=== PATIENT | male | born 1985 | race Hispanic/Latino ===

== ENCOUNTER 2018-06-14 16:05 | Observation (INO) | payer OTHER, BC ==
[2018-06-14] MEDS ORDERED: ceFAZolin 1 GM in Sodium Chloride 0.9% 100 ML IVPB ONE (16:51)
[2018-06-14] MEDS ORDERED: Lidocaine PF 2% (5 ml) Inj (For Cardiac Arrhy) IJ STA (16:52)
[2018-06-14] MEDS ORDERED: Lidocaine PF 2% (5 ml) Inj (For Cardiac Arrhy) ONE (17:07)
[2018-06-14] MEDS ORDERED: ceFAZolin IV 1 gm in Dextrose 1 GM/50 ML BAG IVPB ONE ×2 (17:26→22:09)
--- NOTE | 2018-06-14 17:41 | RAD ---
PROCEDURE: Left Hand Radiographs. HISTORY: laceration, thumb COMPARISON: None. FINDINGS: BONES: Normal. No fracture. JOINTS: Normal. No osteoarthritic changes. SOFT TISSUES: Normal. No visulaized radiopaque/visualized foreign body. OTHER FINDINGS: None. IMPRESSION: Normal left hand radiographs.
[2018-06-14] MEDS ORDERED: HYDROmorphone 0.5 mg/0.5 ml ISec IVP PRN ×2 (18:46→22:51)
--- NOTE | 2018-06-14 18:52 | CP.PCM.HP ---
History of Present Illness - History of Present Illness History of Present Illness: Plastic surgery H & P for Dr. Marycruz Driscoll, PGY-2 Pt S & E at bedside at 1810 32M w/PMH sig for Degenerative disc disease admitted s/p Left thumb laceration. Pt reports being at work today, when a metal beam fell and cut his thumb at the base. Pt reports pain, inability to extend the distal aspect of the thumb. Pain is constant, moderate-severe, radiates laterally. Pain alleviated by pain medication. Aggravated by movement. Denies changes in sensation, numbness or tingling. PMH: Degenerative disc disease PSH: Back sx All: Some allergy med SH: Denies ETOH use, quit tobacco 6 mos ago- now uses vaporizor, denies illicit drug use- on Oxycodone 30mg Q6H for back pain Last meal: 2 slices of pizza at noon Last tetanus- 5 yrs ago Present on Admission - Present on Admission Any Indicators Present on Admission: No History of DVT/PE: No History of Uncontrolled Diabetes: No Urinary Catheter: No Decubitus Ulcer Present: No Review of Systems - Review of Systems All systems: reviewed and no additional remarkable complaints except - Constitutional Constitutional: absent: Chills, Fever Past Patient History - Past Social History Smoking Status: Never Smoked - PSYCHIATRIC Hx Substance Use: No Meds Allergies/Adverse Reactions: Allergies Allergy/AdvReac Type Severity Reaction Status Date / Time Iodinated Contrast- Oral and Allergy SHORTNESS Verified 06/14/18 16:14 IV Dye OF BREATH "allergy medication" Allergy SHORTNESS Uncoded 06/14/18 16:14 OF BREATH Physical Exam - Constitutional Appears: Non-toxic, No Acute Distress - Head Exam Head Exam: ATRAUMATIC, NORMAL INSPECTION, NORMOCEPHALIC - Eye Exam Eye Exam: EOMI, Normal appearance - ENT Exam ENT Exam: Mucous Membranes Moist, Normal Exam - Neck Exam Neck exam: Positive for: Full Rom, Normal Inspection - Respiratory Exam Respiratory Exam: Clear to Auscultation Bilateral, NORMAL BREATHING PATTERN - Cardiovascular Exam Cardiovascular Exam: REGULAR RHYTHM, +S1, +S2 - GI/Abdominal Exam GI & Abdominal Exam: Normal Bowel Sounds, Soft. absent: Tenderness - Extremities Exam Extremities exam: Negative for: normal inspection (Left dorsal aspect of hand with lateral laceration at proximal aspect, visible distal tendon, full thickness laceration) - Neurological Exam Neurological exam: Alert, CN II-XII Intact, Oriented x3 - Psychiatric Exam Psychiatric exam: Normal Affect, Normal Mood - Skin Skin Exam: Dry, Normal Color Results - Vital Signs Recent Vital Signs: Last Vital Signs Temp 98.5 F 06/14/18 16:14 Pulse 87 06/14/18 16:14 Resp 16 06/14/18 16:14 BP 172/64 H 06/14/18 16:14 Pulse Ox 96 06/14/18 16:14 - Labs Result Diagrams: 06/14/18 18:50 06/14/18 18:50 Assessment & Plan - Assessment and Plan (Free Text) Assessment: 32M w/Left hand laceration over dorsal aspect of thumb- full thickness extensor tendon laceration Plan: Unable to repair in ED Plan for OR tonight Admit to med-surg NPO Pain control Anti-emetic Activity as tolerated DW Dr. Henry Driscoll, PGY-2 - Date & Time Date: 06/14/18 Time: 18:54 Decision To Admit - Pt Status Changed To: Hospital Disposition Of: Observation - . Bed Request Type: Med/Surg Admitting Physician: Yvonne Figueroa
[2018-06-14 19:04] LABS: BASO % 0.6 % (0.0-2.0); EOS % 0.5 % (0.0-4.0); HEMOGLOBIN 13.3 g/dL (12.0-18.0); LYMPH % 34.3 % (20.0-40.0); MEAN CELL VOLUME 89.8 fl (80.0-94.0); MEAN CORPUSCULAR HEMOGLOBIN 30.9 pg (27.0-31.0); MEAN CORPUSCULAR HGB CONC 34.4 g/dL (33.0-37.0); MEAN PLATELET VOLUME 7.9 fl (7.2-11.7); MONO # 0.3 K/uL (0.0-0.8); MONO % 5.5 % (0.0-10.0); NEUT # 3.5 K/uL (1.8-7.0); NEUT % 59.1 % (50.0-75.0); RBC 4.32 Mil/uL (4.40-5.90); RED CELL DISTRIBUTION WIDTH 13.6 % (11.5-14.5); WHITE BLOOD COUNT 5.8 K/uL (4.8-10.8)
[2018-06-14 19:10] LABS: INR 1.1
[2018-06-14 19:12] LABS: PARTIAL THROMBOPLASTIN TIME 31.5 Seconds (25.6-37.1)
[2018-06-14 19:13] LABS: ALB/GLOB RATIO 1.4 (1.0-2.1); ALBUMIN 4.3 g/dL (3.5-5.0); ALT/SGPT 68 U/L (21-72); AST/SGOT 55 U/L (17-59); BLOOD UREA NITROGEN 16 mg/dl (9-20); CALCIUM 9.6 mg/dL (8.4-10.2); GFR NON-AFRICAN AMERICAN > 60
[2018-06-14] MEDS ORDERED: ceFAZolin IV 2 gm in Dextrose 2 GM/50 ML BAG IVPB ONE (21:00)
--- NOTE | 2018-06-14 21:13 | ED PDOC ---
HPI: Skin/Bite Injury <Kelly Thibodeaux - Last Filed: 06/17/18 23:53> Chief Complaint (Provider): Left thumb laceration History Per: Patient History/Exam Limitations: no limitations Onset/Duration Of Symptoms: Mins Current Symptoms Are (Timing): Still Present Quality Of Symptoms: Painful Severity: Moderate Pain Scale Rating Of: 4 Additional Complaint(s): 32 yo male with history of back pain and back surgery presents for evaluation of laceration of the left hand. Pt was at work and piece of metal fell on his hand. Pt reports tetanas 4-5 years ago. PT states he was seen at [facility] and told to come to ER for evaluation of tendon injury. Pt denies numbness/tingling. Pt unable to abduct hand. <Radha Young - Last Filed: 06/18/18 00:57> Time Seen by Provider: 06/14/18 16:11 Chief Complaint (Nursing): Abnormal Skin Integrity Past Medical History Vital Signs: Last Vital Signs Temp 98.1 F 06/15/18 00:53 Pulse 74 06/15/18 00:53 Resp 20 06/15/18 00:53 BP 120/68 06/15/18 00:53 Pulse Ox 98 06/15/18 00:53 <Kelly Thibodeaux - Last Filed: 06/17/18 23:53> Reviewed: Historical Data, Nursing Documentation, Vital Signs Vital Signs: Last Vital Signs Temp 98.5 F 06/14/18 16:14 Pulse 87 06/14/18 16:14 Resp 16 06/14/18 16:14 BP 172/64 H 06/14/18 16:14 Pulse Ox 96 06/14/18 16:14 - Medical History PMH: No Chronic Diseases - Surgical History Surgical History: No Surg Hx - Family History Family History: States: No Known Family Hx - Living Arrangements Living Arrangements: With Family - Social History Current smoker - smoking cessation education provided: Yes <Radha Young - Last Filed: 06/18/18 00:57> - Allergies Allergies/Adverse Reactions: Allergies Allergy/AdvReac Type Severity Reaction Status Date / Time Iodinated Contrast- Oral and Allergy SHORTNESS Verified 06/14/18 16:14 IV Dye OF BREATH "allergy medication" Allergy SHORTNESS Uncoded 06/14/18 16:14 OF BREATH Review of Systems ROS Statement: Except As Marked, All Systems Reviewed And Found Negative Constitutional: Negative for: Fever, Chills Skin: Positive for: Other <Radha Young - Last Filed: 06/18/18 00:57> Physical Exam - Reviewed Nursing Documentation Reviewed: Yes Vital Signs Reviewed: Yes - Physical Exam Appears: Positive for: Well, Non-toxic, No Acute Distress Head Exam: Positive for: ATRAUMATIC, NORMAL INSPECTION, NORMOCEPHALIC Skin: Positive for: Normal Color, Warm, DRY Eye Exam: Positive for: Normal appearance ENT: Positive for: Normal ENT Inspection Neck: Positive for: Normal, Painless ROM Cardiovascular/Chest: Positive for: Regular Rate, Rhythm Respiratory: Positive for: Normal Breath Sounds. Negative for: Accessory Muscle Use, Respiratory Distress Back: Positive for: Normal Inspection Extremity: Positive for: Normal ROM Neurologic/Psych: Positive for: Alert, Oriented <Radha Young - Last Filed: 06/18/18 00:57> - Laboratory Results Result Diagrams: 06/14/18 18:50 06/14/18 18:50 <Kelly Thibodeaux - Last Filed: 06/17/18 23:53> - Laboratory Results Result Diagrams: 06/14/18 18:50 06/14/18 18:50 - ECG O2 Sat by Pulse Oximetry: 96 <Radha Young - Last Filed: 06/18/18 00:57> Medical Decision Making Medical Decision Making: Pt seen and examined by Dr. Figueroa. Pt with tendon injury. Will be admitted to go to the OR for tendon repair. <Radha Young - Last Filed: 06/18/18 00:57> Disposition <Kelly Thibodeaux - Last Filed: 06/17/18 23:53> - Patient ED Disposition Is Patient to be Admitted: Yes - Disposition Disposition Time: 20:00 - Pt Status Changed To: Hospital Disposition Of: SDS- Endo,OR,Cath,IR - Admit Certification Admit to Inpatient:: M/S - POA Present On Arrival: None <Radha Young - Last Filed: 06/18/18 00:57> - Clinical Impression Clinical Impression: Laceration of left hand involving tendon - Disposition Condition: GOOD - PA / MATHEMATICIAN RESEARCH / Resident Statement MD/DO has reviewed & agrees with the documentation as recorded. <Kelly Thibodeaux - Last Filed: 06/17/18 23:53>
[2018-06-14] MEDS ORDERED: Lidocaine 1% w Epi 1:100,000 Inj ONE (21:52)
[2018-06-14] MEDS ORDERED: Lidocaine 2% PF (10 ml) Amp ONE (21:52)
[2018-06-14] MEDS ORDERED: Propofol 10 mg/ml Inj (20 ML) ONE (21:55)
[2018-06-14] MEDS ORDERED: Midazolam 2 MG/2 ML VIAL ONE (21:56)
[2018-06-14] MEDS ORDERED: Lactated Ringer's 1,000 ML IV ONE (22:02)
[2018-06-14] MEDS ORDERED: Bupivacaine HCl 0.25% PF (30 ml) Inj IJ ONE ×2 (22:28)
[2018-06-14] MEDS ORDERED: oxyCODONE 10 mg Immediate Release Tab PO PRN (22:53)
[2018-06-14] MEDS ORDERED: oxyCODONE 5 mg Immediate Release Tab PO PRN (22:53)
--- NOTE | 2018-06-14 22:53 | PCM.SURG1 ---
Surgeon's Initial Post Op Note - Surgeon's Notes Surgeon: Yvonne Figueroa MD Pocket Creaser: Tari Driscoll, PGY-2 Type of Anesthesia: General LMA Anesthesia Administered By: Dr Morris Pre-Operative Diagnosis: Extensor pollicis longus laceration of left hand Operative Findings: See op report Post-Operative Diagnosis: Extensor pollicis longus laceration of left hand Operation Performed: Repair ofr Extensor pollicis longus laceration of left hand Specimen/Specimens Removed: None Estimated Blood Loss: EBL {In ML}: 2 Blood Products Given: N/A Drains Used: No Drains Post-Op Condition: Good Date of Surgery/Procedure: 06/14/18 Time of Surgery/Procedure: 22:53
[2018-06-14] MEDS ORDERED: Naloxone 0.4 mg/ml Inj (Adult) ONE (22:58)
[2018-06-14] MEDS ORDERED: Flumazenil 0.1 mg/ml Inj (5ml) IVP ONE (22:59)
[2018-06-14] MEDS ORDERED: Lactated Ringer's 1,000 ML IV SCH (23:00)
[2018-06-14 23:23] VITALS: RESP 20
[2018-06-15 00:54] VITALS: BP 120/68; PULSE 74; TEMP 98.1
[2018-06-18 00:58] VITALS: O2SAT 96
--- NOTE | 2018-06-18 04:23 | OP ---
PROCEDURE DATE: 06/14/2018 SURGEON: Yvonne Figueroa MD. VESSEL ORDINARY SEAMAN: Tari Driscoll DO, resident. ANESTHESIOLOGIST: Elijah Roper MD ANESTHESIA: General anesthesia with LMA. PREOPERATIVE DIAGNOSIS: Left thumb extensor pollicis longus tendon laceration. POSTOPERATIVE DIAGNOSIS: Left thumb extensor pollicis longus tendon laceration. PROCEDURE PERFORMED: Repair of left thumb extensor pollicis longus tendon. ANESTHESIA: Local with 0.5% Marcaine general. INDICATION OF THE PROCEDURE: As follows: This is a 32-year-old male who I explored his penetrating wound to his left hand thumb in the emergency room. The extensor pollicis longus tendon was completely lacerated and then retracted proximally to the wrist. He was then brought to the operating room. Risks and benefits of the operation including, but not limited to tendon rupture, infection, bleeding, stiffness, scarring, damage to the sensory nerve, need to be immobilized for four to six weeks for every minute of the day, cannot come off, need to keep his arm elevated, and need to have therapy afterwards. The possibility of scarring and need secondary procedure were discussed with the patient and his , and all questions were answered. The patient was taken to the operating room. DESCRIPTION OF PROCEDURE: As follows: The patient was taken to the operating room and placed under general anesthesia with an LMA. Perioperative antibiotics were given. SCDs were placed on bilateral lower extremities. The left upper extremity was prepped and draped in the usual sterile manner. The arm was exsanguinated with an Esmarch bandage. The tourniquet was inflated in the upper arm to 250 mmHg. Total tourniquet time for the case was 25 minutes. I started the operation by removing the sutures which I placed in the ER. We then irrigated the wound, then with a tendon retriever underneath the extensor tendon sheath, proximal portion of the extensor pollicis longus tendon which was retracted. We then trimmed the tendon edges with the scissor technique and interrupted 3-0 Vicryl in modified Meade technique. We repaired the tendon. There was only a minimal tension. There were no gaps. We then used 3-0 Vicryl [id number] sutures to reinforce this. After doing this, we explored to find any other injuries. We were pleased with the repair. The wound was irrigated again. Marcaine 0.5% was used locally for postop anesthesia. Then, the wound was closed with a running locked 4-0 nylon suture. Xeroform gauze and sterile dressing were placed, and then a thumb spica splint was fabricated and secured with the left wrist extended in the left IP in 0 degree. Once the splint hardened, the patient was allowed to move. He was then woken from anesthesia. Shoulder sling was placed. He was transferred to recovery room in stable condition. FINDINGS: As above. DRAINS: None. COMPLICATIONS: None. ESTIMATED BLOOD LOSS: Minimal. CONDITION: Stable. Yvonne Figueroa MD
--- NOTE | 2018-06-20 08:06 | OP ---
PROCEDURE DATE: 06/14/2018 PREOPERATIVE DIAGNOSES: 1. A 3 cm left thumb laceration. 2. Left thumb extensor pollicis longus tendon laceration. POSTOPERATIVE DIAGNOSES: 1. A 3 cm left thumb laceration. 2. Left thumb extensor pollicis longus tendon laceration. PROCEDURE PERFORMED: 1. Exploration of penetrating wound of the left thumb. 2. Splint stabilization of left wrist. SURGEON: Yvonne Figueroa MD TYPE OF ANESTHESIA: Left wrist radial nerve block as well as local. INDICATION FOR PROCEDURE: As follows: Please refer to my separately dictated ER consultation for history and physical. DESCRIPTION OF PROCEDURE: As follows: Marcaine 0.5% mixed with 1% lidocaine was used on the left wrist as radial nerve block as well as opening the wound. The area was then irrigated thoroughly with normal saline and diluted with Betadine several liters. The left upper extremity was prepped and draped in usual clean and sterile manner. A tourniquet was placed on the left proximal forearm. was inflated to 250 mmHg. Total tourniquet time for the case was 15 minutes. I started the operation by making the incision larger with the wound as exact proximally with a #15 blade 4-0 Prolene sutures. I explored the penetrating wound distal portion of the extensor pollicis longus tendon, which was completely lacerated. The extensor pollicis brevis tendon was intact. There did not appear to be any other injuries. I then looked underneath this tendon sheath with the blunt clamp and tried to find the proximal end of the tendon, able to retract it significantly near the level of reticular dermis, ER making the incision larger and exploring the wound and closed the skin with 4-0 Prolene suture. Placed Xeroform, dry sterile dressing, fabricated and secured with a thumb spica splint with the left wrist and thumb extended and took the tourniquet off. The patient was then added on emergently to the operating room schedule for tendon repair in the operating room. Yvonne Figueroa MD [facility] # [id number]
== END 2018-06-15 00:30 | disposition home or self-care (01) ==
LOC: H.ER 16:05 → H.ERHOLD 19:07 → H.MEDSURG1 23:47
PROVIDERS: ADMIT Surgery; ATTEND Surgery
DX: S66.222A Laceration of extensor muscle, fascia and tendon of left thumb at wrist and hand level, initial encounter (principal); W20.8XXA Other cause of strike by thrown, projected or falling object, initial encounter; Y92.9 Unspecified place or not applicable; Y99.0 Civilian activity done for income or pay; Z91.041 Radiographic dye allergy status; F17.200 Nicotine dependence, unspecified, uncomplicated
CPT/HCPCS: 26418; 73130; 80053; 85025; 85610; 85730; 86850; 86900; 99284; G0378; J0690; J2001; J2250; J2405; J2704; J2765; J3010; J7030; J7120